=== PATIENT | female | born 1970 | race Caucasian/White ===

== ENCOUNTER 2020-11-15 12:24 | Emergency (ER) | payer SELFPAY ==
--- NOTE | 2020-11-15 12:29 | NUR ---
Unable to call patient in lobby and outside ER entrance for triage at this time.
--- NOTE | 2020-11-15 12:35 | NUR ---
PATIENT LEFT WITHOUT BEING SEEN BY DR. ELIZALDE. NO FURTHER CARE PROVIDED FOR PATIENT.
[2020-11-15] MEDS ORDERED: ERYT5OIN58 OP (14:56)
== END 2020-11-15 12:35 | disposition left against medical advice (07) ==
LOC: MED 12:24
DX: Z53.21 Procedure and treatment not carried out due to patient leaving prior to being seen by health care provider (principal)

== ENCOUNTER 2020-11-15 13:48 | Emergency (ER) | payer SELFPAY ==
[~2020-11-15] VITALS: Ht 175.3 cm; Wt 77.1 kg
[2020-11-15 14:00] VITALS: BP 150/60
--- NOTE | 2020-11-15 14:06 | NUR ---
PT AMBULATED TO BED 9.
[2020-11-15] MEDS ORDERED: FLUORESCEIN OPTH STRIP 1 MG OP ONE (14:20)
[2020-11-15] MEDS ORDERED: KETOROLAC 30 MG/ML VIAL IM ONE (14:20)
[2020-11-15] MEDS ORDERED: TETRACAINE HCL/PF 0.5% OPTH 4 ML BTL OP ONE (14:20)
--- NOTE | 2020-11-15 14:24 | NUR ---
49 Y/O F BIB SELF FROM HOME, PATIENT PRESENTS TO ED WITH R EYE PAIN AFTER CLEANING IN GARAGE, BLURRED VISION AND RILEY ON FRONTAL REGION. PT STATES SHE MIGHT HAVE DUST OR METAL PARTICLES IN HER EYE. UPON INSPECTION, CONJUNCTIVA IS RED, SCELERA IS PINK, PT IS UNABLE TO FULLY OPEN EYE INDEPENDENTLY. PERRLA. DENIES N/V/D; SKIN IS PINK/WARM/DRY; AAOX4 WITH EVEN AND STEADY GAIT; LUNGS CLEAR BL; HR EVEN AND REGULAR; PT DENIES ANY FEVER, CP, SOB, OR COUGH AT THIS TIME; PATIENT STATES PAIN OF 10/10 AT THIS TIME; VSS; PATIENT POSITIONED FOR COMFORT; HOB ELEVATED; BEDRAILS UP X2; BED DOWN. ER MD MADE AWARE OF PT STATUS. PMH: DENIES OMAR
[2020-11-15] MEDS ORDERED: ERYT5OIN58 OP (14:56)
[2020-11-15 15:09] VITALS: BP 150/60
--- NOTE | 2020-11-15 15:09 | NUR ---
Patient discharged with v/s stable. Written and verbal after care instructions given and explained. Patient alert, oriented and verbalized understanding of instructions. Ambulatory with steady gait. All questions addressed prior to discharge. ID band removed. Patient advised to follow up with PMD. Rx of ERYTHROMYCIN BASE given. Patient educated on indication of medication including possible reaction and side effects. Opportunity to ask questions provided and answered.
== END 2020-11-15 15:09 | disposition home or self-care (01) ==
LOC: MED 13:48
DX: S05.01XA Injury of conjunctiva and corneal abrasion without foreign body, right eye, initial encounter (principal); Z79.899 Other long term (current) drug therapy; X58.XXXA Exposure to other specified factors, initial encounter; Y93.89 Activity, other specified; Y92.59 Other trade areas as the place of occurrence of the external cause; Y99.8 Other external cause status
CPT/HCPCS: 96372; 99283; J1885

== ENCOUNTER 2021-01-19 21:19 | Emergency (ER) | payer SELFPAY ==
[~2021-01-19] VITALS: Ht 175.3 cm; Wt 90.7 kg
[~2021-01-19 21:19] MED LIST: ERYT5OIN58 OP
[2021-01-19 21:45] VITALS: BP 147/98
--- NOTE | 2021-01-19 21:48 | NUR ---
TO LOBBY A/W BED VIA WHEEL CHAIR
--- NOTE | 2021-01-19 22:00 | NUR ---
PT CALLED BY [employer] IN LOBBY AND OUTSIDE WITH NO ANSWER.
--- NOTE | 2021-01-19 22:45 | NUR ---
PT CALLED IN LOBBY AND OUTSIDE WITH NO ANSWER.
--- NOTE | 2021-01-19 23:29 | NUR ---
PT CALLED TO BED. UNABLE TO BE FOUND IN LOBBY AND OUTSIDE.
--- NOTE | 2021-01-19 23:29 | NUR ---
PATIENT LEFT WITHOUT BEING SEEN BY DR. TROTTER. NO FURTHER CARE PROVIDED FOR PATIENT.
== END 2021-01-19 22:00 | disposition left against medical advice (07) ==
LOC: MED 21:19
DX: M79.671 Pain in right foot (principal); Z53.21 Procedure and treatment not carried out due to patient leaving prior to being seen by health care provider

== ENCOUNTER 2023-02-09 04:45 | Emergency (ER) | payer MEDICAID ==
[~2023-02-09] VITALS: Ht 175.3 cm; Wt 70.3 kg
[2023-02-09 05:02] VITALS: BP 124/72; PULSE 94; RESP 18; TEMP 97.9; O2SAT 99
[2023-02-09 05:11] VITALS: O2SAT 99
[2023-02-09] MEDS ORDERED: ACETAMINOPHEN EXTRA STRENGTH 500 MG TAB PO ONE (06:05)
[2023-02-09] MEDS ORDERED: diphenhydrAMINE 50 MG CAP PO ONE (06:05)
[2023-02-09] MEDS ORDERED: KETOROLAC 15 MG/ML VIAL IM ONE (06:05)
[2023-02-09] MEDS ORDERED: LOTRC TP (06:06)
== END 2023-02-09 06:19 | disposition left against medical advice (07) ==
LOC: MED 04:45
DX: L29.9 Pruritus, unspecified (principal); Z79.899 Other long term (current) drug therapy; Z79.2 Long term (current) use of antibiotics
CPT/HCPCS: 99281

== ENCOUNTER 2023-06-14 01:46 | Emergency (ER) | payer SELFPAY ==
[~2023-06-14 01:46] MED LIST changes: +LOTRC TP
[2023-06-14] MEDS ORDERED: LOTC TP (15:22)
[2023-06-14] MEDS ORDERED: PRED50TA2 PO (15:22)
[2023-06-14] MEDS ORDERED: PROM118S5 PO (15:22)
[2023-06-14] MEDS ORDERED: ALBU0.0912 IH (15:22)
[2023-06-14] MEDS ORDERED: AZIT250T4 PO (16:13)
== END 2023-06-14 02:10 | disposition left against medical advice (07) ==
LOC: MED 01:46
DX: R53.81 Other malaise (principal); Z53.21 Procedure and treatment not carried out due to patient leaving prior to being seen by health care provider

== ENCOUNTER 2023-06-14 13:56 | Emergency (ER) | payer SELFPAY ==
[~2023-06-14] VITALS: Ht 175.3 cm; Wt 68.0 kg
[2023-06-14 14:26] VITALS: BP 140/92; PULSE 75; RESP 16; TEMP 97.8; O2SAT 98
[2023-06-14] MEDS ORDERED: ACETAMINOPHEN EXTRA STRENGTH 500 MG TAB PO ONE (15:05)
[2023-06-14] MEDS ORDERED: ONDANSETRON 4 MG ODT PO ONE (15:05)
[2023-06-14] MEDS ORDERED: PRED50TA2 PO (15:22)
[2023-06-14] MEDS ORDERED: PROM118S5 PO (15:22)
[2023-06-14] MEDS ORDERED: LOTC TP (15:22)
[2023-06-14] MEDS ORDERED: ALBU0.0912 IH (15:22)
[2023-06-14] MEDS ORDERED: AZIT250T4 PO (16:13)
== END 2023-06-14 16:32 | disposition home or self-care (01) ==
LOC: MED 13:56
DX: J20.9 Acute bronchitis, unspecified (principal); Z20.822 Contact with and (suspected) exposure to COVID-19; R03.0 Elevated blood-pressure reading, without diagnosis of hypertension; Z79.899 Other long term (current) drug therapy
CPT/HCPCS: 71045; 87426; 99284; Q0162

== ENCOUNTER 2023-12-19 00:49 | Emergency (ER) | payer SELFPAY ==
[~2023-12-19] VITALS: Ht 175.3 cm; Wt 68.0 kg
[~2023-12-19 00:49] MED LIST changes: +ALBU0.0912 IH; +AZIT250T4 PO; +LOTC TP; +PRED50TA2 PO; +PROM118S5 PO
[2023-12-19 01:00] VITALS: BP 137/88; PULSE 85; RESP 21; TEMP 98.3; O2SAT 100
[2023-12-19] MEDS: KETOROLAC 30 MG/ML VIAL IM ONE (04:33)
[2023-12-19] MEDS: LIDOCAINE 5% 1 EA PATCH TP ONE (04:34)
[2023-12-19 04:37] VITALS: BP 130/84; PULSE 87; RESP 20; TEMP 98.2; O2SAT 100
== END 2023-12-19 05:16 | disposition home or self-care (01) ==
LOC: MED 00:49
DX: S39.012A Strain of muscle, fascia and tendon of lower back, initial encounter (principal); Z79.1 Long term (current) use of non-steroidal anti-inflammatories (NSAID); Z79.899 Other long term (current) drug therapy; W18.39XA Other fall on same level, initial encounter; Y93.89 Activity, other specified; Y92.89 Other specified places as the place of occurrence of the external cause; Y99.8 Other external cause status
CPT/HCPCS: 72100; 96372; 99283; J1885; Q0092

== ENCOUNTER 2024-01-12 15:45 | Emergency (ER) | payer SELFPAY ==
[~2024-01-12] VITALS: Ht 175.3 cm; Wt 69.1 kg
[2024-01-12 15:54] VITALS: BP 139/90; PULSE 97; RESP 18; TEMP 98.1; O2SAT 98
[2024-01-12] MEDS ORDERED: PERM59LI TP (16:16)
[2024-01-12] MEDS ORDERED: PRED20TA5 PO (16:16)
[2024-01-12] MEDS ORDERED: DIPH25TA53 PO (16:16)
[2024-01-12 16:23] VITALS: BP 127/72; PULSE 97; RESP 18; TEMP 98.1; O2SAT 98
== END 2024-01-12 16:23 | disposition home or self-care (01) ==
LOC: MED 15:45
DX: B85.0 Pediculosis due to Pediculus humanus capitis (principal); R03.0 Elevated blood-pressure reading, without diagnosis of hypertension; Z79.2 Long term (current) use of antibiotics; Z79.899 Other long term (current) drug therapy; Z79.1 Long term (current) use of non-steroidal anti-inflammatories (NSAID)
CPT/HCPCS: 99283

== ENCOUNTER 2024-02-26 07:32 | Emergency (ER) | payer MEDICAID ==
[~2024-02-26] VITALS: Ht 175.3 cm; Wt 72.6 kg
[~2024-02-26 07:32] MED LIST changes: +DIPH25TA53 PO; +PERM59LI TP; +PRED20TA5 PO
[2024-02-26 07:43] VITALS: BP 160/106; PULSE 99; RESP 17; TEMP 97.7; O2SAT 100
== END 2024-02-26 08:09 | disposition home or self-care (01) ==
LOC: MED 07:32
DX: B83.9 Helminthiasis, unspecified (principal); Z79.899 Other long term (current) drug therapy
CPT/HCPCS: 99281